=== PATIENT | female | born 1985 | race Hispanic/Latino ===

== ENCOUNTER 2021-05-19 12:54 | Emergency (ER) | payer BC ==
[~2021-05-19] VITALS: Ht 157.5 cm; Wt 89.4 kg
[2021-05-19 12:56] VITALS: BP 148/91
[2021-05-19 12:57] VITALS: BP 148/97
[2021-05-19] MEDS ORDERED: HYDROXYZINE 100MG/2ML VIAL IM SCH (15:00)
== END 2021-05-19 14:50 | disposition home or self-care (01) ==
LOC: EDH 12:54
DX: F41.9 Anxiety disorder, unspecified (principal)
CPT/HCPCS: 99281; J3410